=== PATIENT | male | born 1960 | race Caucasian/White ===

== ENCOUNTER 2020-11-30 18:55 | Emergency (ER) | payer OTHER ==
--- NOTE | 2020-11-30 19:11 | EDM.PDOC ---
ED HPI GENERAL MEDICAL PROBLEM - General Chief Complaint: Chest Pain Stated Complaint: CHEST PAIN Time Seen by Provider: 11/30/20 19:09 - History of Present Illness INITIAL COMMENTS - FREE TEXT/NARRATIVE: 59-year-old male presents the emergency room with chest pain. Chest pain been going on for couple of days now. He describes it more as a left-sided chest pressure. He cannot recall any activities that make it better or worse. Patient currently is not taking any routine medications does not take routine aspirin. Patient quit smoking about 4 years ago but he has a heavy smoking history prior to that. Patient's family history is remarkable for kidney failure with what sounds like polycystic kidney disease or something that causes enlarged kidneys. Patient's chest pressure and discomfort is not associated with shortness of breath it does not radiate into his arms or into his neck. Patient at times uses naproxen for his neck pain and this works well. Left Upper Chest Pain Score (Numeric/FACES): 3 - Related Data Allergies Allergy/AdvReac Type Severity Reaction Status Date / Time No Known Allergies Allergy Verified 11/30/20 19:03 Home Meds: Home Meds Omeprazole Magnesium [Prilosec Otc] 20 mg PO DAILY 11/30/20 [History] Past Medical History - Past Health History Medical/Surgical History: Denies Medical/Surgical History Social & Family History - Tobacco Use Tobacco Use Status *Q: Former Tobacco User Used Tobacco, but Quit: Yes Month/Year Tobacco Last Used: 2015 - Recreational Drug Use Recreational Drug Use: No ED ROS GENERAL - Review of Systems Review Of Systems: See Below Constitutional: Reports: No Symptoms HEENT: Reports: No Symptoms Respiratory: Reports: No Symptoms Cardiovascular: Reports: Chest Pain (More of a chest pressure) Endocrine: Reports: No Symptoms GI/Abdominal: Reports: No Symptoms Musculoskeletal: Reports: No Symptoms Skin: Reports: No Symptoms Neurological: Reports: No Symptoms Psychiatric: Reports: No Symptoms Hematologic/Lymphatic: Reports: No Symptoms ED EXAM, GENERAL - Physical Exam Exam: See Below Exam Limited By: No Limitations General Appearance: Alert, No Apparent Distress, Other (Patient rates his discomfort at a 1/10 barely noticeable) Head: Atraumatic, Normocephalic Neck: Normal Inspection, Supple, Non-Tender, Full Range of Motion Respiratory/Chest: No Respiratory Distress, Lungs Clear, Normal Breath Sounds Cardiovascular: Regular Rate, Rhythm, No Murmur, Other (Scant pretibial edema this is normal for him) GI/Abdominal: Normal Bowel Sounds, Soft, Non-Tender Back Exam: Normal Inspection. No: CVA Tenderness (L), CVA Tenderness (R) Extremities: Normal Inspection, Pedal Edema (Scant pretibial edema this is normal for him) Neurological: Alert, Oriented, Normal Cognition Skin Exam: Warm, Dry, Intact #1 Interpretation EKG Date: 11/30/20 Rhythm: NSR [place]: Normal P-Wave: Present QRS: Other (Intraventricular conduction delay) ST-T: Normal (Nonspecific nondiagnostic changes) Comparison: NA - No Prior EKG EKG Interpretation Comments: Abnormal EKG nondiagnostic Course - Vital Signs Last Recorded V/S: Last Vital Signs Temp 36.2 C 11/30/20 18:58 Pulse 83 11/30/20 21:20 Resp 16 11/30/20 21:20 BP 150/90 H 11/30/20 21:20 Pulse Ox 91 L 11/30/20 21:20 - Orders/Labs/Meds Orders: Active Orders 24 hr Category Date Time Status Chest 1V Frontal [CR] Stat Exams 11/30/20 19:05 Taken EKG 12 Lead [EK] Stat Ther 11/30/20 19:05 Ordered Labs: Laboratory Tests 11/30/20 11/30/20 11/30/20 Range/Units 19:10 19:10 19:10 WBC 8.28 (4.23-9.07) K/mm3 RBC 5.31 (4.63-6.08) M/mm3 Hgb 14.8 (13.7-17.5) gm/dl Hct 45.1 (40.1-51.0) % MCV 84.9 (79.0-92.2) fl MCH 27.9 (25.7-32.2) pg MCHC 32.8 (32.2-35.5) g/dl RDW Std Deviation 38.3 (35.1-43.9) fL Plt Count 303 (163-337) K/mm3 MPV 8.8 L (9.4-12.3) fl Neut % (Auto) 64.3 (34.0-67.9) % Lymph % (Auto) 20.8 L (21.8-53.1) % [place]le % (Auto) 9.9 (5.3-12.2) % Eos % (Auto) 4.3 (0.8-7.0) Baso % (Auto) 0.2 (0.1-1.2) % Neut # (Auto) 5.32 (1.78-5.38) K/mm3 Lymph # (Auto) 1.72 (1.32-3.57) K/mm3 [place] # (Auto) 0.82 (0.30-0.82) K/mm3 Eos # (Auto) 0.36 (0.04-0.54) K/mm3 Baso # (Auto) 0.02 (0.01-0.08) K/mm3 PT 9.8 (9.7-12.0) SECONDS INR < 0.93 APTT 26.2 (21.7-31.4) SECONDS D-Dimer, Quantitative 0.33 (0.19-0.50) mg/L Sodium 138 (136-145) mEq/L Potassium 3.8 (3.5-5.1) mEq/L Chloride 102 (98-107) mEq/L Carbon Dioxide 27 (21-32) mEq/L Anion Gap 12.8 (5-15) BUN 13 (7-18) mg/dL Creatinine 1.1 (0.7-1.3) mg/dL Est Cr Clr Drug Dosing 69.09 mL/min Estimated GFR (MDRD) > 60 (>60) mL/min BUN/Creatinine Ratio 11.8 L (14-18) Glucose 241 H (74-106) mg/dL Calcium 8.6 (8.5-10.1) mg/dL Total Bilirubin 0.3 (0.2-1.0) mg/dL AST 18 (15-37) U/L ALT 60 (16-63) U/L Alkaline Phosphatase 118 H (46-116) U/L Troponin I < 0.017 (0.00-0.056) ng/mL Total Protein 7.5 (6.4-8.2) g/dl Albumin 3.6 (3.4-5.0) g/dl Globulin 3.9 gm/dL Albumin/Globulin Ratio 0.9 L (1-2) Meds: Medications Discontinued Medications Generic Name Dose Route Start Last Admin Trade Name Freq PRN Reason Stop Dose Admin Aspirin 324 mg 11/30/20 19:25 11/30/20 19:55 Aspirin PO 11/30/20 19:26 324 mg ONETIME ONE Administration Sodium Chloride 1,000 mls @ 50 mls/hr 11/30/20 19:30 11/30/20 19:58 Normal Saline IV 50 mls/hr ASDIRECTED MAYUR Administration Nitroglycerin 0.4 mg 11/30/20 19:25 11/30/20 19:56 Nitrostat SL 0.4 mg Q5M PRN Administration Chest Pain - Re-Assessments/Exams Free Text/Narrative Re-Assessment/Exam: 11/30/20 21:08 EKG is nondiagnostic chest x-ray shows no acute changes troponin is negative other labs are nondiagnostic. Patient has a heart score of 2 one-point for his age one-point for risk factors ex-smoker. I discussed implications of the heart score with the patient and the patient's and have mentioned that over 1- 1/2% of people in the so-called low risk category will have some form of major acute coronary event within the next 6 weeks. Options for him at this point are observation for further monitoring of his troponin and telemetry monitoring versus outpatient management and follow-up in the clinic. The patient would like to go home and agrees to follow-up in the clinic. I have recommended he start a baby aspirin a day he agrees to do this.. Departure - Departure Time of Disposition: 21:10 Disposition: Home, Self-Care 01 Clinical Impression: Chest pain Instructions: Nonspecific Chest Pain, Adult Referrals: PCP,Not In Area [Primary Care Provider] - Forms: ED Department Discharge Additional Instructions: Return to the emergency room with any questions problems or worsening symptoms. Establish with a local physician this week and follow-up this week. Discussed the pros and cons of getting a stress test, such as a stress Cardiolite or stress echo. The phone number to the hospital clinic is [phone]. Start a baby aspirin a day this is 81 mg preferably enteric-coated. Sepsis Event Note (ED) - Evaluation Sepsis Screening Result: No Definite Risk - Focused Exam Vital Signs: Vital Signs Temp Pulse Resp BP BP Pulse Ox 11/30/20 21:20 83 16 150/90 H 91 L 11/30/20 19:56 161/94 H 11/30/20 18:58 36.2 C 82 16 172/110 H 95 - My Orders Last 24 Hours: My Active Orders 11/30/20 19:05 Chest 1V Frontal [CR] Stat EKG 12 Lead [EK] Stat - Assessment/Plan Last 24 Hours: My Active Orders 11/30/20 19:05 Chest 1V Frontal [CR] Stat EKG 12 Lead [EK] Stat
[2020-11-30] MEDS ORDERED: Aspirin 81 MG Tab.Chew PO ONE (19:25)
[2020-11-30] MEDS ORDERED: Nitroglycerin 0.4 MG Tab.SL SL PRN (19:25)
[2020-11-30] MEDS ORDERED: Sodium Chloride 0.9% 1,000 ML IV SCH (19:30)
--- NOTE | 2020-12-01 09:19 | CR ---
Chest: Portable view of the chest was obtained. Comparison: No previous study. Heart size is slightly prominent. Upper mediastinum is normal. Lungs are clear with no acute parenchymal change. Prior cervical spine surgery is noted. Impression: 1. Findings as noted above. 2. Nothing acute is seen. Diagnostic code #2 MTDD
== END 2020-11-30 21:20 | disposition home or self-care (01) ==
LOC: JD.ED 18:55
DX: R07.89 Other chest pain (principal); R94.31 Abnormal electrocardiogram [ECG] [EKG]; Z87.891 Personal history of nicotine dependence
CPT/HCPCS: 36415; 71045; 80053; 84484; 85025; 85379; 85610; 85730; 93005; 99285; A9270; J7030; 93010; 99284